=== PATIENT | male | born 1960 | race Caucasian/White ===

== ENCOUNTER 2018-06-17 05:11 | Emergency (ER) | END 2018-06-17 08:55 | disposition home or self-care (01) ==

== ENCOUNTER 2019-04-20 22:44 | Emergency (ER) | payer MEDICAID ==
[~2019-04-20] VITALS: Ht 177.8 cm; Wt 76.8 kg
[~2019-04-20 22:44] MED LIST: GABA100C14 PO; HYDR-3720 PO; HYDR-3980 PO; IBUP-1544 PO; OMEP40CA6 PO; PROC10TA10 PO; SERT50TA6 PO; SIMV40TA2 PO; TEMA15CA PO; TOPI25TA10 PO
[2019-04-20 22:48] VITALS: Ht 177.8 cm; Wt 76.8 kg
--- NOTE | 2019-04-20 23:07 | ERD ---
ER Documentation Chief Complaint Chief Complaint BIB RA39 for hypotension and near syncope s/p chemotherapy today HPI The patient is a 58-year-old male, presenting to the ER because of blurred vision, near syncopal episode today around 9 PM. He has had chemotherapy for the last 5 years, once a week, at [facility]. He had chemotherapy today at [facility], and received oxycodone 5 mg p.o. for his headache, went home but did not eat anything today. He complains of blurred vision around 9 PM, he then hit his head against the restroom wall but denies falling, never had LOC. He denies similar symptoms previously, denies tongue biting/fecal/urinary incontinence. 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 Medications Home Meds Active Scripts Hydrocodone/Acetaminophen ([place] 10-325 Tablet) 1 Each Tablet, 1 TAB PO Q6H PRN for PAIN, #20 TAB Prov:SONY MACIEL DO 06/17/18 Prochlorperazine* (Prochlorperazine*) 10 Mg Tablet, 10 MG PO Q6 PRN for NAUSEA AND/OR VOMITING, #10 TAB Prov:SONY MACIEL DO 11/06/15 Hydrocodone Bit-Acetaminophen* ([place]*) 7.5-325 Tablet, 2 TAB PO Q4H PRN for PAIN, #20 TAB Prov:SONY MACIEL DO 11/06/15 Reported Medications Simvastatin* (Zocor*) 40 Mg Tablet, 40 MG PO QHS, #30 TAB 11/06/15 Temazepam* (Temazepam*) 15 Mg Capsule, 15 MG PO HS PRN for INSOMNIA, CAP 11/06/15 Sertraline Hcl* (Sertraline Hcl*) 50 Mg Tablet, 50 MG PO DAILY, #30 TAB 11/06/15 Omeprazole* (Omeprazole*) 40 Mg Capsule.dr, 40 MG PO DAILY, #30 CAP 11/06/15 Ibuprofen* (Ibuprofen*) 800 Mg Tablet, 800 MG PO BID PRN for PAIN AND/OR INFLAMMATION, TAB 11/06/15 Gabapentin* (Gabapentin*) 100 Mg Capsule, 100 MG PO TID, CAP 11/06/15 Topiramate* (Topiramate*) 25 Mg Tablet, 25 MG PO BID, TAB 11/06/15 Allergies Allergies: Coded Allergies: No Known Allergy (Unverified , 09/11/13) PMhx/Soc History of Surgery: No Anesthesia Reaction: No Hx Neurological Disorder: No Hx Respiratory Disorders: No Hx Cardiac Disorders: Yes (HTN) Hx Psychiatric Problems: No Hx Miscellaneous Medical Probl: Yes (s/p trauma 4 yrs ago, head injury, multiple myeloma with chemo) Hx Alcohol Use: No Hx Substance Use: No Hx Tobacco Use: Yes Physical Exam Vitals Vital Signs Date Temp Pulse Resp B/P (MAP) Pulse Ox O2 O2 Flow FiO2 Time Delivery Rate 04/21/19 99.0 83 20 105/65 95 Room Air 02:30 (78) 04/21/19 95 16 100/62 96 Room Air 01:14 (75) 04/20/19 Nasal 2 23:32 Cannula 04/20/19 98.7 88 18 99/58 (72) 100 22:48 Physical Exam Const: No acute distress. Dehydrated Head: Atraumatic. Eyes: Normal Conjunctiva. ENT: Normal External Ears, Nose and Mouth. Neck: Full range of motion. No meningismus. Resp: Clear to auscultation bilaterally. Cardio: Regular rate and rhythm. Abd: Soft, non distended, normal bowel sounds, non tender. Skin: No petechiae or rashes. Back: No midline or flank tenderness. Ext: No cyanosis, or edema. Neur: Awake and alert. No focal deficit Psych: Normal Mood and Affect. Result Diagram: 04/20/197 04/20/192326 Results 24 hrs Laboratory Tests Test 04/20/19 23:27 04/20/19 23:32 White Blood Count 9.7 10^3/ul Red Blood Count 4.06 10^6/ul Hemoglobin 13.2 g/dl Hematocrit 40.1 % Mean Corpuscular Volume 98.8 fl Mean Corpuscular Hemoglobin 32.5 pg Mean Corpuscular Hemoglobin Concent 32.9 g/dl Red Cell Distribution Width 13.5 % Platelet Count 195 10^3/UL Mean Platelet Volume 9.5 fl Immature Granulocytes % 1.200 % Neutrophils % 87.0 % Lymphocytes % 5.4 % Monocytes % 4.0 % Eosinophils % 1.8 % Basophils % 0.6 % Nucleated Red Blood Cells % 0.0 /100WBC Immature Granulocytes # 0.120 10^3/ul Neutrophils # 8.4 10^3/ul Lymphocytes # 0.5 10^3/ul Monocytes # 0.4 10^3/ul Eosinophils # 0.2 10^3/ul Basophils # 0.1 10^3/ul Nucleated Red Blood Cells # 0.0 10^3/ul Sodium Level 139 mmol/L Potassium Level 3.6 mmol/L Chloride Level 107 mmol/L Carbon Dioxide Level 24 mmol/L Anion Gap 8 Blood Urea Nitrogen 19 mg/dl Creatinine 1.22 mg/dl Est Glomerular Filtrat Rate mL/min > 60 mL/min Glucose Level 135 mg/dl Calcium Level 8.6 mg/dl Troponin I < 0.012 ng/ml Bedside Glucose 117 mg/dL Current Medications Medications Dose Sig/Clem Start Time Status Last (Trade) Ordered Route PRN Stop Time Admin Dose Reason Admin Sodium 1,000 ml @ Q1H ONCE 04/20/19 DC 04/20/19 Chloride 1,000 mls/hr IV 23:30 23:36 04/21/19 00:29 Sodium 1,000 ml @ Q1H ONCE 04/21/19 DC 04/21/19 Chloride 1,000 mls/hr IV 00:00 00:12 04/21/19 00:59 Ondansetron 4 mg ONCE STAT 04/20/19 DC 04/21/19 HCl (Zofran IV 23:59 00:11 Inj) 04/21/19 00:03 Procedures/[place] [id number] Radiology Main Line: [phone] DIAGNOSTIC IMAGING REPORT Patient: ALESSANDRA MARTINEZ : 1960 Age: 58 Sex: M MR #: [id number] DOS: 04/20/19 2321 Ordering MD: LEENA BENJAMIN MD Location: E/R Room/Bed: PROCEDURE: CT Brain without contrast. CLINICAL INDICATION: Syncope. TECHNIQUE: A CT of the brain without contrast was performed utilizing axial sections from the skull base through the vertex. One or more the following does reduction techniques were utilized: Automated exposure control, adjustment of the mA/ or kV according to patient's size, or use of iterative reconstruction technique. Total exam CTDIvol is 39 MGy and DLP is 713 mGy-cm. DICOM images are available. COMPARISON: None available. FINDINGS: The ventricles and sulci are mildly prominent indicative of volume loss. There is no intracranial hemorrhage, mass effect or midline shift. No abnormal intra- axial or extra-axial fluid collections are seen. 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 Old infarct in the lateral aspect of the left cerebellar hemisphere is noted. Otherwise the remainder of berg/white matter differentiation is preserved. There are mild scattered foci of hypoattenuation in the periventricular, deep, and subcortical white matter, which are nonspecific in etiology but likely reflect chronic small vessel ischemic changes. There are mild intracranial vasc ular calcifications consistent with atherosclerosis. The visualized paranasal sinuses are essentially clear. IMPRESSION: 1. No acute intracranial hemorrhage, transcortical infarction or mass effect. 2. 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 3. Old infarct in the lateral aspect of the left cerebellar hemisphere. 4. Mild intracranial atherosclerosis and chronic small vessel ischemic changes. 5. Mild generalized cerebral volume loss. RPTAT: HFN .Gianluca Saunders MD, MD Date Time Electronically viewed and signed by .Gianluca Saunders MD, on 04/21/2019 00:18 .N/ CC: LEENA BENJAMIN MD [id number] [place] [id number] Radiology Main Line: [phone] DIAGNOSTIC IMAGING REPORT Patient: ALESSANDRA MARTINEZ : 1960 Age: 58 Sex: M MR #: [id number] DOS: 04/20/19 2318 Ordering MD: LEENA BENJAMIN MD Location: E/R Room/Bed: PROCEDURE: XR Chest. TECHNIQUE: Single frontal radiograph. CLINICAL INDICATION: Chest Pain. COMPARISON: CHEST 06/17/2018; LETI CHEST 04/09/2015. FINDINGS: Mild elevation of the right hemidiaphragm. Hemidiaphragms are sharply defined. No evidence of focal consolidation, pneumothorax, or pleural effusion. Cardiomediastinal silhouette is within normal limits. Visualized osseous thorax is unremarkable. Overlying soft tissues are equally unremarkable. IMPRESSION: No evidence of acute cardiopulmonary process. No radiographic evidence of interval change. RPTAT: EE Physician Ezra Date Time Electronically viewed and signed by Physician Ezra on 04/20/2019 23:48 BP/ CC: LEENA BENJAMIN MD [id number] EKG: Read by emergency physician Rate/Rhythm: Normal Sinus Rhythm 91 beats/min QRS, ST, T-waves: No ST elevation, no T inversion, PSVC, artifacts Impression: Abnormal EKG MEDICAL MAKING DECISION: The patient is a 58-year-old male, presenting with acute dehydration, acute near syncope is most likely due to acute dehydration. He was treated with 2 L normal saline for acute dehydration, was able to eat and ambulate independently. He did not want to be admitted and is stable for outpatient follow-up The differential diagnoses considered include but are not limited to arrhythmogenic right ventricular dysplasia, Brugada syndrome, left ventricular hypertrophy, pulmonary embolism, QT abnormality, [id number]. Departure Diagnosis: Primary Impression: Dehydration Additional Impressions: Near syncope Anemia Condition: Good Comments I discussed the findings with the patient. I advised the patient to follow-up with the primary physician in about 2-3 days, sooner if needed and return if any concern. Disclaimer: Inadvertent spelling and grammatical errors are likely due to EHR/dictation software use and do not reflect on the overall quality of patient care. Also, please note that the electronic time recorded on this note does not necessarily reflect the actual time of the patient encounter. LEENA BENJAMIN MD April 20, 2019 23:07
[2019-04-20] MEDS ORDERED: SOD CHLORIDE 0.9% 1,000 ML IV ONE (23:30)
[2019-04-20] MEDS ORDERED: ONDANSETRON 4 MG INJ IV STA (23:59)
[2019-04-21] MEDS ORDERED: SOD CHLORIDE 0.9% 1,000 ML IV ONE
[2019-04-21 02:30] VITALS: BP 105/65; PULSE 83; RESP 20
[2019-04-21] MEDS ORDERED: LENA2.5C PO (03:07)
[2019-04-21] MEDS ORDERED: CYCL10TA7 PO (03:16)
[2019-04-21] MEDS ORDERED: LOSA50TA14 PO (03:16)
[2019-04-21] MEDS ORDERED: VARE0.5T PO (03:16)
[2019-04-21] MEDS ORDERED: ACYC400T2 PO (03:16)
[2019-04-21] MEDS ORDERED: HYDR25TA6 PO (03:16)
[2019-04-21] MEDS ORDERED: ALBU8.5H8 INH (03:16)
[2019-04-21] MEDS ORDERED: OXYC5CAP17 PO (03:16)
[2019-04-21] MEDS ORDERED: AMLO-147 PO (03:17)
[2019-04-21] MEDS ORDERED: ASPI-535 PO (03:17)
== END 2019-04-21 02:45 | disposition home or self-care (01) ==
LOC: E/R 22:44
DX: E86.0 Dehydration (principal); D64.9 Anemia, unspecified; C90.00 Multiple myeloma not having achieved remission; I10 Essential (primary) hypertension
CPT/HCPCS: 70450; 71045; 80048; 82962; 84484; 85025; 93005; J2405; J7030; 36415; 96374